=== PATIENT | female | born 1960 | race Hispanic/Latino ===

== ENCOUNTER 2020-05-23 11:00 | Emergency (ER) | payer SELFPAY | END 2020-05-23 11:30 | disposition home or self-care (01) | LOC: NAV ERS 11:00 | DX: T78.40XA Allergy, unspecified, initial encounter (principal); I10 Essential (primary) hypertension; D64.9 Anemia, unspecified; F41.9 Anxiety disorder, unspecified; X58.XXXA Exposure to other specified factors, initial encounter | CPT/HCPCS: 99283 ==